=== PATIENT | male | born 1990 | race Caucasian/White ===

== ENCOUNTER 2021-05-10 09:07 | Outpatient (CLI) | payer OTHER | END 2021-05-10 09:08 | disposition critical access hospital (66) | LOC: EMS 09:07 | DX: R41.82 Altered mental status, unspecified (principal); R25.1 Tremor, unspecified | CPT/HCPCS: A0425; A0429 ==

== ENCOUNTER 2021-05-10 09:26 | Emergency (ER) | payer OTHER ==
[2021-05-10 09:53] LABS: BASOPHILS % (AUTO) 0.5 %; HCT - HEMATOCRIT 44.6 % (42.0-52.0); HGB - HEMOGLOBIN 15.1 g/dL (14.0-18.0); LYMPHOCYTES # (AUTO) 0.6 10^3/uL (1.5-3.5); LYMPHOCYTES % (AUTO) 14.6 %; MEAN CORPUSCULAR HEMOGLOBIN 32.9 pg (27.0-31.0); MEAN CORPUSCULAR HGB CONC 33.9 g/dL (32.0-36.0); MEAN CORPUSCULAR VOLUME 97.2 fL (80.0-94.0); MEAN PLATELET VOLUME 10.1 fL (7.4-11.4); MONOCYTES # (AUTO) 0.5 10^3/uL (0.0-1.0); MONOCYTES % (AUTO) 13.6 %; NEUTROPHILS # (AUTO) 2.8 10^3/uL (1.5-6.6); NEUTROPHILS % (AUTO) 69.5 %; PLT - PLATELET COUNT 127 10^3/uL (130-450); RED BLOOD COUNT 4.59 10^6/uL (4.70-6.10); RED CELL DISTRIBUTION WIDTH 11.9 % (12.0-15.0)
[2021-05-10 10:00] LABS: INR 1.1 (0.8-1.2); PT - PROTHROMBIN TIME 12.6 secs (9.9-12.6)
[2021-05-10 10:15] LABS: ALBUMIN 5.2 g/dL (3.2-5.5); ALBUMIN/GLOBULIN RATIO 1.6 (1.0-2.2); BILIRUBIN,TOTAL 2.3 mg/dL (0.2-1.0); CALCIUM 10.6 mg/dL (8.5-10.3); CREATININE 0.7 mg/dL (0.6-1.2); POTASSIUM 3.5 mmol/L (3.5-5.0); TOTAL PROTEIN 8.5 g/dL (6.7-8.2)
[2021-05-10 11:06] VITALS: BP 130/97
--- NOTE | 2021-05-10 11:09 | ED Physician Documentation ---
History of Present Illness - Stated complaint Stated Complaint: ETOH/WITHDRAWL - Chief complaint Chief Complaint: MHE - History obtained from History obtained from: Patient, EMS - History of Present Illness Timing: How many days ago (3) - Additonal information Additional information: 30-year-old male who is going through alcohol detox at [facility] has had increased symptoms this morning with confusion and shakiness and he wanted to leave the the facility and the staff called the ambulance to have him brought to the hospital. The patient states that today he thinks he feels fine. He has been getting Ativan. His drinking history is 1/5 a day for years on a regular basis without going a single day without alcohol. He has been at the facility for 2 days and he thinks he has been there a week. Review of Systems Constitutional: denies: Fever Eyes: denies: Decreased vision Ears: denies: Ear pain Nose: denies: Congestion Throat: denies: Sore throat Cardiac: denies: Chest pain / pressure Respiratory: denies: Dyspnea, Cough GI: denies: Abdominal Pain, Nausea, Vomiting : denies: Dysuria PD PAST MEDICAL HISTORY - Allergies Allergies/Adverse Reactions: Allergies Allergy/AdvReac Type Severity Reaction Status Date / Time No Known Drug Allergies Allergy Verified 05/10/21 09:43 PD ED PE NORMAL - Vitals Vital signs reviewed: Yes (hypertensive ) - General General: No acute distress, Well developed/nourished, Other (alert responds readily without speech latency. Has some shakiness. 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, No motor deficit, No sensory deficit, Normal speech Eye Opening: Spontaneous Motor: Obeys Commands Verbal: Confused GCS Score: 14 - Psych Psych: Normal mood, Normal affect Results - Vitals Vitals: Vital Signs - 24 hr 05/10/21 05/10/21 09:39 11:06 Temperature 37 C Heart Rate 91 91 Respiratory 17 Rate Blood Pressure 142/102 H 130/97 H O2 Saturation 100 Oxygen O2 Source Room air - Labs Labs: Laboratory Tests 05/10/21 05/10/21 05/10/21 09:47 09:47 09:47 WBC 4.0 L RBC 4.59 L Hgb 15.1 Hct 44.6 MCV 97.2 H MCH 32.9 H MCHC 33.9 RDW 11.9 L Plt Count 127 L MPV 10.1 Neut # (Auto) 2.8 Lymph # (Auto) 0.6 L [place] # (Auto) 0.5 Eos # (Auto) 0.0 Baso # (Auto) 0.0 Absolute Nucleated RBC 0.00 Nucleated RBC % 0.0 PT 12.6 INR 1.1 Sodium 138 Potassium 3.5 Chloride 94 L Carbon Dioxide 30 Anion Gap 14.0 H BUN 20 Creatinine 0.7 Estimated GFR (MDRD) 132 Glucose 110 H Calcium 10.6 H Total Bilirubin 2.3 H AST 225 H ALT 155 H Alkaline Phosphatase 78 Ammonia Total Protein 8.5 H Albumin 5.2 Globulin 3.3 Albumin/Globulin Ratio 1.6 Lipase 56 H 05/10/21 10:16 WBC RBC Hgb Hct MCV MCH MCHC RDW Plt Count MPV Neut # (Auto) Lymph # (Auto) [place] # (Auto) Eos # (Auto) Baso # (Auto) Absolute Nucleated RBC Nucleated RBC % PT INR Sodium Potassium Chloride Carbon Dioxide Anion Gap BUN Creatinine Estimated GFR (MDRD) Glucose Calcium Total Bilirubin AST ALT Alkaline Phosphatase Ammonia 38.0 H Total Protein Albumin Globulin Albumin/Globulin Ratio Lipase PD MEDICAL DECISION MAKING - ED course Complexity details: considered differential, d/w patient ED course: 30-year-old male in a second day of alcohol withdrawal has confusion and shakes. He will require more treatment including more ativan and I have encouraged him to return to [facility] for further treatment. He is agreeable to this. Departure - Departure Disposition: 01 Home, Self Care Clinical Impression: Alcohol withdrawal syndrome Qualifiers: Complication of substance-induced condition: with perceptual disturbance Qualified Code(s): F10.232 - Alcohol dependence with withdrawal with perceptual disturbance Condition: Stable Instructions: ED Withdrawal Alcohol Follow-Up: CAMERON BOYLE MD [Primary Care Provider] - Comments: Return to [facility] a for further treatment. Today and tomorrow may be rough days for you and the recommendation is to stick with the treatment and medication. Discharge Date/Time: 05/10/21 13:12
== END 2021-05-10 13:12 | disposition home or self-care (01) ==
LOC: ED 09:26
DX: F10.232 Alcohol dependence with withdrawal with perceptual disturbance (principal)
CPT/HCPCS: 36415; 80053; 82140; 83690; 85025; 85610; 99283; 99284